=== PATIENT | male | born 1965 | race Caucasian/White ===

== ENCOUNTER 2018-05-06 12:06 | Emergency (ER) | payer MEDICAID ==
[2018-05-06] MEDS: LIDOCAINE 1% (MDV) 20 ML INJ SC (12:33)
== END 2018-05-06 13:06 | disposition home or self-care (01) ==
LOC: FTE 12:06
DX: S51.812A Laceration without foreign body of left forearm, initial encounter (principal); W26.8XXA Contact with other sharp object(s), not elsewhere classified, initial encounter; Y92.9 Unspecified place or not applicable
CPT/HCPCS: 12001; 99282-25

== ENCOUNTER 2018-05-08 17:53 | Emergency (ER) | payer MEDICAID | END 2018-05-08 20:09 | disposition home or self-care (01) | LOC: FTE 17:53 | DX: S51.812D Laceration without foreign body of left forearm, subsequent encounter (principal); X58.XXXD Exposure to other specified factors, subsequent encounter; Z48.01 Encounter for change or removal of surgical wound dressing | CPT/HCPCS: 99281; Z7502 ==

== ENCOUNTER 2018-05-14 12:08 | Emergency (ER) | payer MEDICAID | END 2018-05-14 14:14 | disposition home or self-care (01) | LOC: FTE 14:14 | DX: Z48.02 Encounter for removal of sutures (principal); R40.2412 Glasgow coma scale score 13-15, at arrival to emergency department | CPT/HCPCS: 99281; Z7502 ==